=== PATIENT | female | born 1965 | race Caucasian/White ===

== ENCOUNTER → 2016-09-04 | Outpatient (CLI) | payer MEDICARE ==
[~2016-09-04] MED LIST: BACLOFEN20 MG PO; DAILY MULTIPLE1 EACH PO; DIAZEPAM2 MG PO; INDERAL80 MG PO; LO-DOSE ASPIRIN81 M2 PO; LYRICA100 MG PO; NAPROXEN500 MG PO; OMEPRAZOLE20 M2 PO; TOPAMAX100 MG PO; TRAMADOL HCL50 MG PO; TYLENOL EXTRA500 MG PO; Ultram PO; VITAMIN D22000 UNIT PO; Vicodin,Norco 5/325 PO; ZOFRAN ODT4 MG PO; ZOLOFT100 MG PO
== END | disposition home or self-care (01) ==
LOC: CDC 15:34
DX: R00.1 Bradycardia, unspecified (principal); G93.5 Compression of brain; G44.89 Other headache syndrome; M54.2 Cervicalgia
CPT/HCPCS: 93000

== ENCOUNTER 2016-09-08 05:39 | Inpatient (IN) | payer OTHER ==
[~2016-09-08] VITALS: Ht 152.4 cm; Wt 68.2 kg
[2016-09-08 06:27] VITALS: BP 107/64
[2016-09-08 13:49] LABS: POINT-OF-CARE METER ID UU13113675
[2016-09-08 21:51] VITALS: BP 133/75
[2016-09-08 22:00] VITALS: BP 122/76
[2016-09-08 22:59] LABS: METH RESISTANT S AUREUS PCR NEGATIVE (NEGATIVE)
[2016-09-08 23:00] VITALS: BP 107/60
[2016-09-08 23:01] LABS: PROBE CHECK PASS; SPECIMEN PROCESSING CONTROL PASS
[2016-09-09] VITALS (9 sets, daily range): BP systolic 98–114; BP diastolic 57–94
[2016-09-09 06:32] LABS: ALKALINE PHOSPHATASE 52 IU/L (3-129); ANION GAP 14 MEQ/L (2-14); CHLORIDE 110 MEQ/L (99-109); GFR ESTIMATE (CALCULATED) > 59 mL/min/; GLUCOSE 146 mg/dL (70-99); POTASSIUM 3.9 MEQ/L (3.7-5.4); SAMPLE HEMOLYSIS CHECK 0; SAMPLE ICTERIC CHECK 0; SAMPLE LIPEMIA CHECK 0; SODIUM 144 MEQ/L (136-147); TOTAL BILIRUBIN 0.2 MG/DL (0.0-1.0); UREA NITROGEN (BUN) 8 mg/dL (9-23)
[2016-09-09] MEDS ORDERED: HYDROCODON-ACE1 EAC7 PO ×2 (09:10→10:53)
== END 2016-09-09 11:01 | disposition home or self-care (01) | DRG 27 ==
LOC: 2SOUTH 05:39 → 4WEST 21:26
PROVIDERS: Neurological Surgery
DX: G93.5 Compression of brain (principal); R51 Headache; R25.1 Tremor, unspecified; R29.2 Abnormal reflex; R26.9 Unspecified abnormalities of gait and mobility; M79.7 Fibromyalgia; K58.9 Irritable bowel syndrome, unspecified
CPT/HCPCS: 70450; 80053; 82948; 87641; J0131; J0330; J0690; J1030; J1100; J1170; J2250; J2405; J2710; J2930; J3010; J3480; S0020

== ENCOUNTER 2016-10-05 20:08 | Inpatient (IN) | payer OTHER ==
[~2016-10-05] VITALS: Ht 152.4 cm; Wt 58.0 kg
[~2016-10-05 20:08] MED LIST changes: +HYDROCODON-ACE1 EAC7 PO
[2016-10-05 20:53] LABS: HEMATOCRIT 34.2 % (36.0-46.0); MCH 28.6 PG (29.0-34.0); MCHC 32.7 G/DL (30.0-36.0); MCV 87.5 FL (83-99); MEAN PLAT.VOLUME 9.5 uM^3 (9.5-12.4); PLATELET COUNT 324 K/uL (156-360); RBC DIS.WIDTH-CV 14.2 % (11.8-14.6); RBC DIS.WIDTH-SD 44.9 % (39-53); RED BLOOD COUNT 3.91 M/uL (3.80-5.20)
[2016-10-05 20:56] LABS: CARBON DIOXIDE (BICARBONATE) 26.4 MEQ/L (20-31)
[2016-10-05 21:03] LABS: WHITE BLOOD COUNT 7.3 K/uL (4.1-10.2)
[2016-10-05 21:06] LABS: CHLORIDE 103 mEq/L (99-109); POTASSIUM 4.1 mEq/L (3.7-5.4); SODIUM 138 mEq/L (136-147)
[2016-10-05 21:08] LABS: GLUCOSE 96 mg/dL (70-99)
[2016-10-05 21:09] LABS: ANION GAP 12 MEQ/L (2-14)
[2016-10-05 21:11] LABS: GFR ESTIMATE (CALCULATED) 39 mL/min/
[2016-10-05 21:13] LABS: UREA NITROGEN (BUN) 20 mg/dL (9-23)
[2016-10-05 21:16] LABS: TROP-I INTERPRETATION NEGATIVE; TROPONIN-I < 0.01 ng/mL (0.0-0.30)
[2016-10-05] MEDS ORDERED: BACTRIM,SEPT1 TABLET PO (21:51)
[2016-10-05] MEDS ORDERED: TRAMADOL HCL50 MG PO (21:51)
[2016-10-05] MEDS ORDERED: NAPROXEN500 MG PO (21:51)
[2016-10-05] MEDS ORDERED: ALLERGY RELIEF25 M1 PO (23:47)
[2016-10-05] MEDS ORDERED: TYLENOL EXTRA500 MG PO (23:47)
[2016-10-05] MEDS ORDERED: LORAZEPAM0.5 MG PO (23:48)
[2016-10-06 02:13] VITALS: BP 125/75
[2016-10-06 02:26] LABS: ADD MIUA? NO; BILIRUBIN NEGATIVE; BLOOD NEGATIVE; COLOR YELLOW ((YELLOW)); GLUCOSE (STRIP) NEGATIVE; KETONES 5; LEUKOCYTES NEGATIVE; NITRITE NEGATIVE; PROTEIN (STRIP) NEGATIVE; SPECIFIC GRAVITY 1.009 (1.000-1.030); UROBILINOGEN 0.2 MG/DL (0.2-1.0)
[2016-10-06 03:49] VITALS: BP 124/70
[2016-10-06 07:06] LABS: HEMATOCRIT 31.6 % (36.0-46.0); MCH 28.5 PG (29.0-34.0); MCHC 32.6 G/DL (30.0-36.0); MCV 87.5 FL (83-99); MEAN PLAT.VOLUME 9.7 uM^3 (9.5-12.4); PLATELET COUNT 300 K/uL (156-360); RBC DIS.WIDTH-CV 14.3 % (11.8-14.6); RBC DIS.WIDTH-SD 45.7 % (39-53); RED BLOOD COUNT 3.61 M/uL (3.80-5.20); WHITE BLOOD COUNT 8.2 K/uL (4.1-10.2)
[2016-10-06 07:28] LABS: GFR ESTIMATE (CALCULATED) > 59 mL/min/; GLUCOSE 103 mg/dL (70-99); POTASSIUM 3.3 MEQ/L (3.7-5.4); SODIUM 139 MEQ/L (136-147); UREA NITROGEN (BUN) 12 mg/dL (9-23)
[2016-10-06 07:29] LABS: ALKALINE PHOSPHATASE 61 IU/L (3-129); ANION GAP 10 MEQ/L (2-14); CHLORIDE 107 MEQ/L (99-109); SAMPLE HEMOLYSIS CHECK 0; SAMPLE ICTERIC CHECK 0; SAMPLE LIPEMIA CHECK 0; TOTAL BILIRUBIN 0.2 MG/DL (0.0-1.0)
[2016-10-06 09:00] VITALS: BP 100/57
[2016-10-06 11:30] VITALS: BP 90/52
[2016-10-06 15:26] VITALS: BP 97/54
[2016-10-06 19:40] VITALS: BP 101/55
[2016-10-07 00:16] VITALS: BP 102/69
[2016-10-07 03:30] VITALS: BP 135/60
[2016-10-07 07:20] VITALS: BP 129/80
[2016-10-07 07:29] LABS: ANION GAP 8 MEQ/L (2-14); CHLORIDE 111 MEQ/L (99-109); GFR ESTIMATE (CALCULATED) > 59 mL/min/; GLUCOSE 92 mg/dL (70-99); SAMPLE HEMOLYSIS CHECK 0; SAMPLE ICTERIC CHECK 0; SAMPLE LIPEMIA CHECK 0; SODIUM 141 MEQ/L (136-147); UREA NITROGEN (BUN) 10 mg/dL (9-23)
[2016-10-07 07:32] LABS: POTASSIUM 4.6 MEQ/L (3.7-5.4)
[2016-10-07 11:00] VITALS: BP 116/62
[2016-10-07] MEDS ORDERED: LIDODERM 5% P1 PATCH TD (12:50)
== END 2016-10-07 13:16 | disposition home health service (06) | DRG 917 ==
LOC: EME 20:08 → EDOF 22:54 → 4EAST 22:54
PROVIDERS: Emergency Medicine; Family Medicine; Internal Medicine
DX: T40.2X1A Poisoning by other opioids, accidental (unintentional), initial encounter (principal); J96.02 Acute respiratory failure with hypercapnia; G92 Toxic encephalopathy; N17.9 Acute kidney failure, unspecified; K21.9 Gastro-esophageal reflux disease without esophagitis; F32.9 Major depressive disorder, single episode, unspecified; G43.909 Migraine, unspecified, not intractable, without status migrainosus; E87.6 Hypokalemia; F17.290 Nicotine dependence, other tobacco product, uncomplicated; F41.9 Anxiety disorder, unspecified; T40.4X5A Adverse effect of other synthetic narcotics, initial encounter; T42.4X5A Adverse effect of benzodiazepines, initial encounter; G24.01 Drug induced subacute dyskinesia; G89.29 Other chronic pain
CPT/HCPCS: 70450; 71010; 80048; 80053; 81003; 82803; 83605; 84484; 85027; 87070; 87075; 87205; 97530 GP; 99281; 99285; J1885; J2310; J7030; S0028

== ENCOUNTER → 2016-11-11 | Outpatient (CLI) | payer OTHER ==
[~2016-11-11] MED LIST changes: +ALLERGY RELIEF25 M1 PO; +ASPIR 8181 M1 PO; +BACTRIM,SEPT1 TABLET PO; +ELAVIL25 MG PO; +LIDODERM 5% P1 PATCH TD; +LORAZEPAM0.5 MG PO
== END | disposition home or self-care (01) ==
LOC: PICC 08:55
DX: T81.4XXA Infection following a procedure, initial encounter (principal)
CPT/HCPCS: 76937; C1894

== ENCOUNTER 2016-12-09 14:52 | Day surgery (SDC) | payer OTHER ==
[~2016-12-09] VITALS: Ht 149.9 cm; Wt 70.2 kg
[~2016-12-09 14:52] MED LIST changes: +IRON325 M1 PO
[2016-12-09 15:49] LABS: HEMATOCRIT 30.7 % (36.0-46.0); MCH 26.9 PG (29.0-34.0); MCHC 30.6 G/DL (30.0-36.0); MCV 87.7 FL (83-99); MEAN PLAT.VOLUME 9.1 uM^3 (9.5-12.4); PLATELET COUNT 277 K/uL (156-360); RBC DIS.WIDTH-CV 14.2 % (11.8-14.6); RBC DIS.WIDTH-SD 45.4 % (39-53); WHITE BLOOD COUNT 4.8 K/uL (4.1-10.2)
[2016-12-09 16:04] VITALS: BP 109/70
[2016-12-09 16:06] LABS: ANION GAP 8 MEQ/L (2-14); CHLORIDE 108 MEQ/L (99-109); GFR ESTIMATE (CALCULATED) > 59 mL/min/; GLUCOSE 96 mg/dL (70-99); POTASSIUM 3.8 MEQ/L (3.7-5.4); SAMPLE HEMOLYSIS CHECK 0; SAMPLE ICTERIC CHECK 0; SAMPLE LIPEMIA CHECK 0; SODIUM 140 MEQ/L (136-147); UREA NITROGEN (BUN) 8 mg/dL (9-23)
[2016-12-09 20:35] VITALS: BP 123/69
[2016-12-10 00:02] VITALS: BP 98/56
[2016-12-10 04:12] VITALS: BP 91/53
[2016-12-10] MEDS ORDERED: TRAMADOL HCL50 MG PO (07:26)
[2016-12-10 08:30] VITALS: BP 99/57
== END 2016-12-10 09:14 | disposition home or self-care (01) ==
LOC: SDC 14:52 → 2SOUTH 18:51 → 3EAST 18:51
PROVIDERS: Neurological Surgery
DX: T81.32XA Disruption of internal operation (surgical) wound, not elsewhere classified, initial encounter (principal); T81.4XXA Infection following a procedure, initial encounter; Q07.00 Arnold-Chiari syndrome without spina bifida or hydrocephalus; F17.200 Nicotine dependence, unspecified, uncomplicated; F32.9 Major depressive disorder, single episode, unspecified; I10 Essential (primary) hypertension; Z79.82 Long term (current) use of aspirin; Z82.49 Family history of ischemic heart disease and other diseases of the circulatory system
CPT/HCPCS: 80048; 85027; 87070; 87075; 87205; 88304; C1713; G0378; J0690; J1580; J2405; J2710; J3010; J3370; J3480

== ENCOUNTER 2017-02-24 09:10 | Day surgery (SDC) | payer OTHER ==
[~2017-02-24] VITALS: Ht 152.4 cm; Wt 68.9 kg
[~2017-02-24 09:10] MED LIST changes: +VITAMIN D2000 UNIT PO; -VITAMIN D22000 UNIT PO
[2017-02-24 09:44] LABS: HEMATOCRIT 36.6 % (36.0-46.0); MCH 27.7 PG (29.0-34.0); MCHC 31.4 G/DL (30.0-36.0); MCV 88.2 FL (83-99); MEAN PLAT.VOLUME 9.1 uM^3 (9.5-12.4); PLATELET COUNT 248 K/uL (156-360); RBC DIS.WIDTH-CV 17.3 % (11.8-14.6); RBC DIS.WIDTH-SD 56.2 % (39-53); RED BLOOD COUNT 4.15 M/uL (3.80-5.20); WHITE BLOOD COUNT 4.9 K/uL (4.1-10.2)
[2017-02-24 10:04] VITALS: BP 139/77
[2017-02-24 10:11] LABS: ANION GAP 7 MEQ/L (2-14); CHLORIDE 108 MEQ/L (99-109); GFR ESTIMATE (CALCULATED) > 59 mL/min/; GLUCOSE 88 mg/dL (70-99); POTASSIUM 3.5 MEQ/L (3.7-5.4); SAMPLE HEMOLYSIS CHECK 0; SAMPLE ICTERIC CHECK 0; SAMPLE LIPEMIA CHECK 0; SODIUM 142 MEQ/L (136-147); UREA NITROGEN (BUN) 11 mg/dL (9-23)
[2017-02-24 15:05] VITALS: BP 150/77
[2017-02-24 15:57] VITALS: BP 122/72
== END 2017-02-24 16:05 | disposition home or self-care (01) ==
LOC: SDC 09:10
PROVIDERS: Neurological Surgery
DX: T81.32XA Disruption of internal operation (surgical) wound, not elsewhere classified, initial encounter (principal); T81.89XA Other complications of procedures, not elsewhere classified, initial encounter; Q07.00 Arnold-Chiari syndrome without spina bifida or hydrocephalus; Y83.8 Other surgical procedures as the cause of abnormal reaction of the patient, or of later complication, without mention of misadventure at the time of the procedure; I10 Essential (primary) hypertension; E55.9 Vitamin D deficiency, unspecified; F32.9 Major depressive disorder, single episode, unspecified; M79.7 Fibromyalgia; K21.9 Gastro-esophageal reflux disease without esophagitis; F17.210 Nicotine dependence, cigarettes, uncomplicated; Z79.82 Long term (current) use of aspirin; Z82.49 Family history of ischemic heart disease and other diseases of the circulatory system
CPT/HCPCS: 80048; 85027; 87070; 87075; 87205; J0330; J0690; J1100; J2250; J2405; J2710; J2930; J3010; J3370; S0020